=== PATIENT | male | born 1955 | race American Indian/Alaskan Native ===

== ENCOUNTER 2018-05-16 09:19 | Emergency (ER) | payer SELFPAY ==
[2018-05-16 09:44] VITALS: BP 153/88
[2018-05-16] MEDS ORDERED: MOTRIN PO ONE (10:36)
[2018-05-16] MEDS ORDERED: ULTRAM PO ONE (10:36)
--- NOTE | 2018-05-16 10:40 | Emergency Department Report ---
ED General Adult HPI - General Chief complaint: Extremity Problem,Nontraumatic Stated complaint: LFT LEG ULCERS PAIN Time Seen by Provider: 05/16/18 10:12 Source: patient Mode of arrival: Ambulatory Limitations: No Limitations - History of Present Illness Initial comments: Patient is a 62-year-old [place] male with a history of diabetes who has a left medial ankle diabetic ulcer. Patient states the also has been present for several months with the pain is getting worse. Patient was recently seen at a hospital in [place] 4 days ago and states he was not given any pain meds. Patient now is back in [place] and is looking for pain meds and somewhere he can follow-up. Patient denies any fevers chills nausea vomiting at this time. Patient states pain is 10 out of 10. - Related Data Previous Rx's Medication Instructions Recorded Last Taken Type Butalb/Acetaminophen/Caffeine 1 each PO Q6H PRN #7 capsule 05/23/14 Unknown Rx [Fioricet 50-300-40 mg Capsule] Sulfamethoxazole/Trimethoprim 1 each PO BID #20 tablet 06/06/14 Unknown Rx [Bactrim Ds] traMADol [Ultram 50 MG tab] 50 mg PO Q6HR PRN #15 tablet 06/06/14 Unknown Rx Ketorolac [Toradol] 10 mg PO Q6H PRN #15 tablet 05/16/18 Unknown Rx Allergies Allergy/AdvReac Type Severity Reaction Status Date / Time No Known Allergies Allergy Verified 05/23/14 06:36 ED Review of Systems ROS: Stated complaint: LFT LEG ULCERS PAIN Other details as noted in HPI Comment: All other systems reviewed and negative ED Past Medical Hx - Past Medical History Hx Diabetes: Yes - Surgical History Additional Surgical History: bilateral hip replacement - Social History Smoking Status: Current Every Day Smoker Substance Use Type: None - Medications Home Medications: Home Medications Medication Instructions Recorded Confirmed Last Taken Type Butalb/Acetaminophen/Caffeine 1 each PO Q6H PRN #7 capsule 05/23/14 Unknown Rx [Fioricet 50-300-40 mg Capsule] Sulfamethoxazole/Trimethoprim 1 each PO BID #20 tablet 06/06/14 Unknown Rx [Bactrim Ds] traMADol [Ultram 50 MG tab] 50 mg PO Q6HR PRN #15 tablet 06/06/14 Unknown Rx Ketorolac [Toradol] 10 mg PO Q6H PRN #15 tablet 05/16/18 Unknown Rx ED Physical Exam - General Limitations: No Limitations General appearance: alert, in no apparent distress - Head Head exam: Present: atraumatic, normocephalic - Eye Eye exam: Present: normal appearance - ENT ENT exam: Present: mucous membranes moist - Neck Neck exam: Present: normal inspection - Respiratory Respiratory exam: Present: normal lung sounds bilaterally. Absent: respiratory distress, wheezes, rales - Cardiovascular Cardiovascular Exam: Present: regular rate, normal rhythm. Absent: systolic murmur, diastolic murmur, rubs, gallop - GI/Abdominal GI/Abdominal exam: Present: soft, normal bowel sounds - Rectal Rectal exam: Present: deferred - Extremities Exam Extremities exam: Present: normal inspection, other (large diabetic ulcer in the medial left ankle. We'll demarcate it is good granulation tissue and no surrounding erythema.) - Back Exam Back exam: Present: normal inspection - Neurological Exam Neurological exam: Present: alert, oriented X3 - Psychiatric Psychiatric exam: Present: normal affect, normal mood - Skin Skin exam: Present: warm, dry, intact, normal color. Absent: rash ED Course Vital Signs 05/16/18 09:34 Temperature 98.9 F Pulse Rate 102 H Respiratory 18 Rate Blood Pressure 153/88 O2 Sat by Pulse 100 Oximetry Critical care attestation.: If time is entered above; I have spent that time in minutes in the direct care of this critically ill patient, excluding procedure time. ED Disposition Clinical Impression: Ulcer, chronic, neurogenic of lower limb Qualifiers: Laterality: left Non-pressure ulcer stage: unspecified non-pressure ulcer stage Qualified Code(s): L97.929 - Non-pressure chronic ulcer of unspecified part of left lower leg with unspecified severity Disposition: DC-01 TO HOME OR SELFCARE Is pt being admited?: No Does the pt Need Aspirin: No Condition: Stable Prescriptions: Ketorolac [Toradol] 10 mg PO Q6H PRN #15 tablet PRN Reason: Pain Referrals[facility]] - 3-5 Days Time of Disposition: 10:39
== END 2018-05-16 11:01 | disposition home or self-care (01) ==
LOC: ED 09:19
DX: E13.621 Other specified diabetes mellitus with foot ulcer (principal); L97.929 Non-pressure chronic ulcer of unspecified part of left lower leg with unspecified severity; F17.200 Nicotine dependence, unspecified, uncomplicated; Z79.899 Other long term (current) drug therapy
CPT/HCPCS: 82962; 99283

== ENCOUNTER 2018-06-08 13:24 | Emergency (ER) | payer MEDICAID ==
[2018-06-08 13:56] VITALS: BP 194/106
[2018-06-08 14:17] LABS: Basophils # (Auto) 0.1 K/mm3 (0.0-0.1); Basophils % (Auto) 0.8 % (0.0-1.8); Eosinophils # (Auto) 0.1 K/mm3 (0.0-0.4); Eosinophils % (Auto) 0.5 % (0.0-4.3); Hematocrit 40.5 % (35.5-45.6); Hemoglobin 13.4 gm/dl (11.8-15.2); Lymphocytes # (Auto) 2.7 K/mm3 (1.2-5.4); Lymphocytes % (Auto) 28.4 % (13.4-35.0); Mean Corpuscular HGB Conc 33 % (32-34); Mean Corpuscular Hemoglobin 28 pg (28-32); Mean Corpuscular Volume 85 fl (84-94); Monocytes # (Auto) 0.9 K/mm3 (0.0-0.8); Monocytes % (Auto) 9.3 % (0.0-7.3); Platelet Count 236 K/mm3 (140-440); Red Blood Count 4.76 M/mm3 (3.65-5.03); Red Cell Distribution Width 15.3 % (13.2-15.2)
[2018-06-08 14:37] LABS: BUN/Creatinine Ratio 19; Blood Urea Nitrogen 19 mg/dL (9-20); Calcium 9.8 mg/dL (8.4-10.2); Hemolysis Index 3
[2018-06-08 18:26] LABS: Bacteria,Urine 1+ /HPF (Negative); Bilirubin,Urine NEG (Negative); Blood,Urine MOD (Negative); Color,Urine Amber (Yellow); Mucus,Urine 3+ /HPF
[2018-06-08 18:38] LABS: Amphetamine Screen,Urine PRESUMPTIVE NEGATIVE; Benzodiazepines Screen,Urine PRESUMPTIVE NEGATIVE; Cannabinoid Screen,Urine PRESUMPTIVE NEGATIVE; Cocaine Screen,Urine PRESUMPTIVE NEGATIVE; Methadone Screen,Urine PRESUMPTIVE NEGATIVE; Opiate Screen,Urine PRESUMPTIVE NEGATIVE
--- NOTE | 2018-06-08 19:29 | Emergency Department Report ---
ED Anxiety HPI - General Chief Complaint: Anxiety Stated Complaint: CHEST PAINS Source: patient Mode of arrival: Ambulatory - Related Data Home Medications: Previous Rx's Medication Instructions Recorded Last Taken Type Butalb/Acetaminophen/Caffeine 1 each PO Q6H PRN #7 capsule 05/23/14 Unknown Rx [Fioricet 50-300-40 mg Capsule] Sulfamethoxazole/Trimethoprim 1 each PO BID #20 tablet 06/06/14 Unknown Rx [Bactrim Ds] Ketorolac [Toradol] 10 mg PO Q6H PRN #15 tablet 05/16/18 Unknown Rx Nitrofurantoin Monohyd/M-Cryst 100 mg PO Q12HR #20 capsule 06/08/18 Unknown Rx [Macrobid 100 mg Capsule] traMADol [Ultram 50 MG tab] 50 mg PO Q6HR PRN #15 tablet 06/08/18 Unknown Rx Allergies/Adverse Reactions: Allergies Allergy/AdvReac Type Severity Reaction Status Date / Time No Known Allergies Allergy Verified 05/23/14 06:36 ED Review of Systems ROS: Stated complaint: CHEST PAINS Other details as noted in HPI ED Past Medical Hx - Past Medical History Hx Hypertension: Yes Hx Diabetes: Yes - Surgical History Past Surgical History?: Yes Additional Surgical History: bilateral hip replacement - Social History Smoking Status: Never Smoker Substance Use Type: Alcohol, Heroin - Medications Home Medications: Home Medications Medication Instructions Recorded Confirmed Last Taken Type Butalb/Acetaminophen/Caffeine 1 each PO Q6H PRN #7 capsule 05/23/14 Unknown Rx [Fioricet 50-300-40 mg Capsule] Sulfamethoxazole/Trimethoprim 1 each PO BID #20 tablet 06/06/14 Unknown Rx [Bactrim Ds] Ketorolac [Toradol] 10 mg PO Q6H PRN #15 tablet 05/16/18 Unknown Rx Nitrofurantoin Monohyd/M-Cryst 100 mg PO Q12HR #20 capsule 06/08/18 Unknown Rx [Macrobid 100 mg Capsule] traMADol [Ultram 50 MG tab] 50 mg PO Q6HR PRN #15 tablet 06/08/18 Unknown Rx ED Physical Exam - General Limitations: No Limitations ED Course Vital Signs 06/08/18 13:51 Temperature 98 F Pulse Rate 130 H Respiratory 16 Rate Blood Pressure 194/106 O2 Sat by Pulse 96 Oximetry ED Medical Decision Making - Lab Data Result diagrams: 06/08/18 14:00 06/08/18 14:00 Critical care attestation.: If time is entered above; I have spent that time in minutes in the direct care of this critically ill patient, excluding procedure time. ED Disposition Clinical Impression: Chronic ulcer of leg Qualifiers: Laterality: left Non-pressure ulcer stage: limited to breakdown of skin Qualified Code(s): L97.921 - Non-pressure chronic ulcer of unspecified part of left lower leg limited to breakdown of skin UTI (urinary tract infection) Qualifiers: Urinary tract infection type: acute cystitis Hematuria presence: with hematuria Qualified Code(s): N30.01 - Acute cystitis with hematuria HTN (hypertension) Qualifiers: Hypertension type: unspecified Qualified Code(s): I10 - Essential (primary) hypertension Disposition: TO HOME OR SELFCARE Is pt being admited?: No Does the pt Need Aspirin: No Condition: Stable Instructions: Urinary Tract Infection in Men (ED), Stasis Dermatitis (ED), Hypertension (ED) Additional Instructions: Please complete antibiotics as prescribed. Please take pain medication as needed. And follow up with wound care clinic for your chronic stasis wound. Prescriptions: Nitrofurantoin Monohyd/M-Cryst [Macrobid 100 mg Capsule] 100 mg PO Q12HR #20 capsule traMADol [Ultram 50 MG tab] 50 mg PO Q6HR PRN #15 tablet PRN Reason: Pain Referrals: PRIMARY CARE, [Primary Care Provider] - 3-5 Days VIKY MONTIEL MD [Staff Physician] - 3-5 Days CATHI ELISE MD [Staff Physician] - 3-5 Days [facility] [Other] - 3-5 Days
[2018-06-08] MEDS ORDERED: MOTRIN PO ONE (19:58)
== END 2018-06-08 20:09 | disposition home or self-care (01) ==
LOC: ED 13:24
DX: L97.921 Non-pressure chronic ulcer of unspecified part of left lower leg limited to breakdown of skin (principal); N39.0 Urinary tract infection, site not specified; I10 Essential (primary) hypertension; E11.9 Type 2 diabetes mellitus without complications
CPT/HCPCS: 36415; 80048; 80307; 81001; 85025; 93005; 93010; 99283; G0480; 80320